=== PATIENT | female | born 1940 | race Caucasian/White ===

== ENCOUNTER 2022-02-19 19:41 | Emergency (ER) | payer MEDICARE, BC, SELFPAY ==
[2022-02-19] VITALS (7 sets, daily range): BP systolic 125–156; BP diastolic 100–107; PULSE 91–116; RESP 18; TEMP 37.1; O2SAT 93–97; BMI 34.6
--- NOTE | 2022-02-19 20:29 | CRLHL7_ITS ---
For Patients: As a result of the Cures Act, medical imaging exams and procedure reports are released immediately into your electronic medical record. You may view this report before your referring provider. If you have questions, please contact your health care provider. INDICATION: Shortness of breath. TECHNIQUE: Chest 1 views. COMPARISON: None. FINDINGS: Lungs: Clear lungs. No consolidation. Pleura: No pleural effusion or pneumothorax. Heart and Mediastinum: The cardiomediastinal silhouette is enlarged. The vessels are unremarkable. Bones: Unremarkable. IMPRESSION: No acute cardiopulmonary disease. Dictated by Stone Estrada MD @ 02/19/2022 9:21:22 PM (Electronically Signed)
[2022-02-19 20:45] LABS: Basophils Absolute Auto 0.04 K/uL (0.00-0.30); Basophils Percent Auto 0.4 % (0.0-3.0); Eosinophils Absolute Auto 0.35 K/uL (0.00-0.50); Eosinophils Percent Auto 3.7 % (0.0-7.0); Hematocrit 36.4 % (33.0-51.0); Hemoglobin* 11.7 gm/dL (12.0-16.0); Immature Granulocytes Abs Auto 0.01 K/uL (0.00-0.30); Immature Granulocytes Pct Auto 0.1 %; Lymphocytes Absolute Auto 2.35 K/uL (0.90-2.90); Lymphocytes Percent Auto 24.8 % (20-44); Mean Corpuscular HGB Conc 32 gm/dL (32-36); Mean Corpuscular Hemoglobin 28 pg (26-34); Mean Corpuscular Volume 88 fL (80-100); Monocytes Percent Auto 8.8 % (0.0-11.0); Neutrophils Percent Auto 62.2 % (42.0-72.0); Platelet Count* 284 K/uL (140-440); Red Blood Count 4.14 m/uL (4.00-5.20); White Blood Count* 9.48 K/uL (4.50-11.00)
[2022-02-19 20:46] LABS: Slide Review Reflex No
--- NOTE | 2022-02-19 20:47 | ED_ITS ---
HPI - Arrhythmia/Palpitations General Chief Complaint: Arrhythmia/Palpitations Stated Complaint: irregular heartbeat Time Seen by Provider: 02/19/22 20:09 History of Present Illness HPI narrative: Pt is an 81 year old woman who presents with a one hour history of palpitations. Pt has had no chest pain. She was at rest when she felt like her heart was going fast. She took her pulse and found that it was 125. Pt has no history of atrial fibrillation but did have an abnormal stress test in January the results are being managed with Imdur, Metoprolol, Lisinopril and aspirin. Pt has been active and having no symptoms. She does have chronic lower extremity edema which is unchanged. Upon arrival pt had an EKG showing atrial fibrillation with a rate of 138. She is placed on tele and her rate does fall to 80 at times. Related Data Home Medications Medication Instructions Recorded Confirmed alendronate 70 mg tablet 70 mg PO .Once Weekly 02/19/22 02/19/22 aspirin 81 mg tablet,delayed 81 mg PO DAILY 02/19/22 02/19/22 release (Adult Low Dose Aspirin) atorvastatin 40 mg tablet 40 mg PO .At Bedtime 02/19/22 02/19/22 furosemide 20 mg tablet 20 mg PO BID 02/19/22 02/19/22 ibuprofen 800 mg tablet 800 mg PO Q8H PRN pain 02/19/22 02/19/22 isosorbide mononitrate 30 mg 30 mg PO DAILY 02/19/22 02/19/22 tablet,extended release 24 hr lisinopril 10 mg tablet 10 mg PO DAILY 02/19/22 02/19/22 metoprolol succinate 25 mg 12.5 mg PO DAILY 02/19/22 02/19/22 tablet,extended release 24 hr potassium chloride 10 mEq 10 meq PO DAILY 02/19/22 02/19/22 tablet,extended release Previous Rx's Medication Instructions Recorded apixaban 5 mg tablet 5 mg PO BID Atrial Fibrillation 02/19/22 #60 tabs metoprolol succinate 25 mg 12.5 mg PO DAILY Atrial 02/19/22 tablet,extended release 24 hr Fibrillation #30 tabs (Toprol XL) Allergies Allergy/AdvReac Type Severity Reaction Status Date / Time bacitracin [From Cortisporin] AdvReac Verified 02/19/22 22:40 hydrocortisone AdvReac Verified 02/19/22 22:40 [From Cortisporin] neomycin [From Cortisporin] AdvReac Verified 02/19/22 22:40 polymyxin B AdvReac Verified 02/19/22 22:40 [From Cortisporin] Blue Dye Allergy Mild Itching Uncoded 02/19/22 22:40 Review of Systems Status of ROS: Reports: 10 or more systems reviewed and unremarkable except as noted in History and below [facility] Medical History (Updated 02/19/22 @ 23:50 by Jose A Alas MD) CAD (coronary artery disease) Hyperlipidemia Hypertension Social History Smoking Status: Former smoker What tobacco products do you use: cigarettes Do you use any of these nicotine containing products: None Second hand tobacco smoke exposure: Yes How often do you have a drink containing alcohol: monthly or less AUDIT-C Alcohol total score: 1 Non-prescribed substance use: denies use Exam Narrative: Exam Narrative: EXAM GENERAL: Patient appears comfortable and well. EYES: No scleral icterus. THYROID: no thyroid nodules or thyromegaly. LYMPH: No supraclavicular or cervical lymphadenopathy. SKIN: Visible skin seen during exam normal or with benign process only. EXT: No dependent lower extremity pedal edema. HEART: Irregularly irregular no rubs clicks gallops or murmurs. LUNGS: Clear to auscultation bilaterally with no crackles or wheezes. ABD: Soft, non tender, non distended. PSYCH: Good eye contact, speech is not pressured. Const: Vital Signs, click to edit/add: Vital Signs - 24 hr 02/19/22 19:56 02/19/22 20:45 02/19/22 21:34 Temperature 98.7 F Pulse Rate 104 H Pulse Rate [Left P ulse Oximeter] 109 H Respiratory Rate 18 Blood Pressure 139/107 H Blood Pressure [Ri ght Upper Arm] 156/106 H Pulse Oximetry 97 96 95 Oxygen Delivery Me thod Room Air 02/19/22 21:35 02/19/22 22:00 02/19/22 22:02 Temperature Pulse Rate 91 95 116 H Pulse Rate [Left P ulse Oximeter] Respiratory Rate Blood Pressure 125/100 H Blood Pressure [Ri ght Upper Arm] Pulse Oximetry 95 93 94 Oxygen Delivery Me thod 02/19/22 23:05 02/20/22 00:06 02/20/22 00:00 Temperature Pulse Rate 112 H 109 H Pulse Rate [Left P ulse Oximeter] Respiratory Rate Blood Pressure Blood Pressure [Ri ght Upper Arm] 142/97 H Pulse Oximetry 97 96 Oxygen Delivery Me thod 02/20/22 00:02 Temperature Pulse Rate Pulse Rate [Left P ulse Oximeter] Respiratory Rate Blood Pressure 142/94 H Blood Pressure [Ri ght Upper Arm] Pulse Oximetry Oxygen Delivery Me thod Course Course Hospital Course: Pt seen and examined, Labs and x ray orded. Pt placed on tele. Reevaluation(s) Reevaluation #1: Pt feeling better. Rate is now 92 down from 138 without intervention. Time: 20:58 Consultations Consultation #1: Case discussed with Cardiology. Recommend no cardioversion as length of atrial fibrillation. Rate control and anticoagulation with Apixaban. Time: 20:58 Consultation #2: D dimer elevated but CT of chest shows no evidence of PE. Time: 23:46 Vital Signs Vital signs: Initial Vital Signs Temperature 98.7 F 02/19/22 19:56 Temperature Source Temporal Artery Scan 02/19/22 19:56 Pulse Rate 109 H 02/19/22 19:56 Pulse Rhythm 02/19/22 19:56 Respiratory Rate 18 02/19/22 19:56 Blood Pressure 156/106 H 02/19/22 19:56 Blood Pressure Mean 122 02/19/22 19:56 Blood Pressure Position Sitting 02/19/22 19:56 Pulse Oximetry 97 02/19/22 19:56 Oxygen Delivery Method 02/19/22 19:56 Vital Signs Temperature 98.7 F 02/19/22 19:56 Pulse Rate 109 H 02/19/22 19:56 Respiratory Rate 18 02/19/22 19:56 Blood Pressure 156/106 H 02/19/22 19:56 Pulse Oximetry 97 02/19/22 19:56 Oxygen Delivery Method 02/19/22 19:56 Temperature 98.7 F 02/19/22 19:56 Pulse Rate 109 H 02/20/22 00:00 Respiratory Rate 18 02/19/22 19:56 Blood Pressure 142/97 H 02/20/22 00:06 Pulse Oximetry 96 02/20/22 00:00 Oxygen Delivery Method 02/19/22 19:56 MDM - Arrhythmia/Palpitations MDM Narrative Medical decision making narrative: Pt is an 81 year old woman who comes in with palpitations. Found to be in atrial fibrillation with rate of 138. This falls to 90 without intervention. Discussed case with Cardiology who recommends no cardioversion but rate control and anticoagulation with Apixaban. Troponin negative times two. D dimer elevated. CT of chest negative for PE. Pt started on Apixaban and Topol XL increased from 12.5 to 25 daily. Cardiology follow up. Differential Diagnosis Differential diagnosis: Likely sinus tachycardia, artial fibrillation, artial flutter, ventricular premature beats, supraventricular tachycardia and ventricular tachycardia Lab Data Labs: Lab Results 02/19/22 02/19/22 02/19/22 Range/Units 20:34 20:34 20:34 WBC 9.48 (4.50-11.00) K/uL RBC 4.14 (4.00-5.20) m/uL Hgb 11.7 L (12.0-16.0) gm/dL Hct 36.4 (33.0-51.0) % MCV 88 (80-100) fL MCH 28 (26-34) pg MCHC 32 (32-36) gm/dL RDW Coeff of Sofia 14.0 (11.5-15.5) % Plt Count 284 (140-440) K/uL Neut % (Auto) 62.2 (42.0-72.0) % Lymph % (Auto) 24.8 (20-44) % [place] % (Auto) 8.8 (0.0-11.0) % Eos % (Auto) 3.7 (0.0-7.0) % Baso % (Auto) 0.4 (0.0-3.0) % Neut # (Auto) 5.90 (1.7-7.0) K/uL Lymph # (Auto) 2.35 (0.90-2.90) K/uL [place] # (Auto) 0.80 (0.00-0.90) K/UL Eos # (Auto) 0.35 (0.00-0.50) K/uL Baso # (Auto) 0.04 (0.00-0.30) K/uL D-Dimer Quant (PE/DVT) 2.12 H (0.00-0.50) ug/ml Sodium 140 (135-149) mmol/L Potassium 3.0 L (3.6-5.1) mmol/L Chloride 106 (96-114) mmol/L Carbon Dioxide 29 (20-32) mmol/L BUN 15 (7-30) mg/dL Creatinine 0.7 (0.5-1.5) mg/dL Estimated Creat Clear 45.33 Estimated GFR 86 ml/min Glucose 112 (60-115) mg/dL Calcium 8.6 (8.4-10.6) mg/dL Troponin I < 0.01 L (0.01-0.04) ng/mL POC Troponin I (0.01-0.04) ng/ml 02/19/22 Range/Units 22:05 WBC (4.50-11.00) K/uL RBC (4.00-5.20) m/uL Hgb (12.0-16.0) gm/dL Hct (33.0-51.0) % MCV (80-100) fL MCH (26-34) pg MCHC (32-36) gm/dL RDW Coeff of Sofia (11.5-15.5) % Plt Count (140-440) K/uL Neut % (Auto) (42.0-72.0) % Lymph % (Auto) (20-44) % [place] % (Auto) (0.0-11.0) % Eos % (Auto) (0.0-7.0) % Baso % (Auto) (0.0-3.0) % Neut # (Auto) (1.7-7.0) K/uL Lymph # (Auto) (0.90-2.90) K/uL [place] # (Auto) (0.00-0.90) K/UL Eos # (Auto) (0.00-0.50) K/uL Baso # (Auto) (0.00-0.30) K/uL D-Dimer Quant (PE/DVT) (0.00-0.50) ug/ml Sodium (135-149) mmol/L Potassium (3.6-5.1) mmol/L Chloride (96-114) mmol/L Carbon Dioxide (20-32) mmol/L BUN (7-30) mg/dL Creatinine (0.5-1.5) mg/dL Estimated Creat Clear Estimated GFR ml/min Glucose (60-115) mg/dL Calcium (8.4-10.6) mg/dL Troponin I (0.01-0.04) ng/mL POC Troponin I 0.01 (0.01-0.04) ng/ml Discharge Plan Discharge Clinical Impression: Atrial fibrillation Patient Disposition: Home, Self-Care Condition: Stable Instructions: A-fib (Atrial Fibrillation) (ED) Additional Instructions: Apixaban 5 mg twice daily Increase Toprol XL to 25 mg daily Follow up with Cardiology Activity Level: Activity as Tolerated Discharge Diet: Regular Prescriptions: New apixaban 5 mg tablet 5 mg PO BID Qty: 60 2RF metoprolol succinate [Toprol XL] 25 mg tablet extended release 24 hr 12.5 mg PO DAILY Qty: 30 2RF No Action atorvastatin 40 mg tablet 40 mg PO .At Bedtime ibuprofen 800 mg tablet 800 mg PO Q8H PRN (Reason: pain) Label Comments: TAKE 1 TABLET BY MOUTH EVERY 8 TO 12 HOURS NEEDED FOR PAIN isosorbide mononitrate 30 mg tablet extended release 24 hr 30 mg PO DAILY alendronate 70 mg tablet 70 mg PO .Once Weekly potassium chloride 10 mEq tablet extended release 10 meq PO DAILY lisinopril 10 mg tablet 10 mg PO DAILY furosemide 20 mg tablet 20 mg PO BID metoprolol succinate 25 mg tablet extended release 24 hr 12.5 mg PO DAILY aspirin [Adult Low Dose Aspirin] 81 mg tablet,delayed release (DR/EC) 81 mg PO DAILY Follow Up/Referrals: Bre Durham MD [Primary Care Provider] - Stand Alone Forms: MyHealth Info Instructions
[2022-02-19 21:17] LABS: Chloride* 106 mmol/L (96-114); Sodium* 140 mmol/L (135-149)
[2022-02-19 21:20] LABS: Blood Urea Nitrogen* 15 mg/dL (7-30); Carbon Dioxide* 29 mmol/L (20-32); Creatinine* 0.7 mg/dL (0.5-1.5); Est. Creatinine Clearance* 45.33; Estimated Glomerular Filt Rate 86 ml/min; Glucose* 112 mg/dL (60-115)
[2022-02-19 21:21] LABS: Calcium* 8.6 mg/dL (8.4-10.6)
[2022-02-19 21:22] LABS: D Dimer Quantitative* 2.12 ug/ml (0.00-0.50)
[2022-02-19 21:35] LABS: Troponin I* < 0.01 ng/mL (0.01-0.04)
--- NOTE | 2022-02-19 21:50 | CRLHL7_ITS ---
For Patients: As a result of the Century Cures Act, medical imaging exams and procedure reports are released immediately into your electronic medical record. You may view this report before your referring provider. If you have questions, please contact your health care provider. INDICATION: Elevated D-dimer. TECHNIQUE: CT chest PE was acquired with 95 cc Isovue 370 IV contrast. COMPARISON: Chest CT 07/30/2019. FINDINGS: Heart and vasculature: Contrast opacification of the pulmonary arterial tree is adequate. No sign of pulmonary embolism. Cardiomegaly with biatrial enlargement. Enlarged main pulmonary artery measuring 3.7 cm. Normal caliber thoracic aorta with mild atherosclerotic calcification. Lungs and pleura: The lungs are clear. No pleural effusion or pneumothorax. No suspicious nodule. Lymph nodes/mediastinum: No mediastinal, hilar, or axillary adenopathy. 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 Thyroid: Unremarkable. Upper abdomen: No acute or significant findings. Bones: Unremarkable for age. IMPRESSION: No pulmonary embolism. No acute findings in the chest. Please note that all CT scans at this facility use dose modulation, iterative reconstruction, and/or weight-based dosing when appropriate to reduce radiation dose to as low as reasonably achievable. Dictated by Valente Garcia MD @ 02/19/2022 11:29:14 PM (Electronically Signed)
[2022-02-19 22:29] LABS: Troponin, Point-of-Care* 0.01 ng/ml (0.01-0.04)
[2022-02-20] VITALS: PULSE 109; O2SAT 96
[2022-02-20 00:02] VITALS: BP 142/94
[2022-02-20 00:06] VITALS: BP 142/97
== END 2022-02-20 00:08 | disposition home or self-care (01) ==
PROVIDERS: Emergency Provider Internal Medicine; PCP Family Medicine
DX: I48.91 Unspecified atrial fibrillation (principal)
CPT/HCPCS: 36415; 71045; 71260; 80048; 84484; 85025; 85379; 93005; 94761; 99283; 99284; Q9967

== ENCOUNTER 2024-02-18 09:45 | Outpatient (RCR) | payer MEDICARE, BC, SELFPAY | END 2024-06-17 23:59 | disposition home or self-care (01) | PROVIDERS: PCP Family Medicine; Visit Provider Family Medicine | DX: R26.89 Other abnormalities of gait and mobility (principal); Z51.89 Encounter for other specified aftercare | CPT/HCPCS: 97110; 97161 ==

== ENCOUNTER 2024-05-21 12:32 | Outpatient (CLI) | payer MEDICARE, BC, SELFPAY | END 2024-05-21 12:33 | disposition home or self-care (01) | LOC: WOUND 12:44 | PROVIDERS: PCP Family Medicine; Visit Provider Nurse Practitioner Family | DX: I87.311 Chronic venous hypertension (idiopathic) with ulcer of right lower extremity (principal); L97.818 Non-pressure chronic ulcer of other part of right lower leg with other specified severity; I48.19 Other persistent atrial fibrillation; E66.812 Obesity, class 2; Z68.28 Body mass index [BMI] 28.0-28.9, adult | CPT/HCPCS: 11043; G0463 ==

== ENCOUNTER 2024-06-04 14:33 | Outpatient (CLI) | payer MEDICARE, BC, SELFPAY | END 2024-06-04 14:34 | disposition home or self-care (01) | LOC: WOUND 14:34 | PROVIDERS: PCP Family Medicine; Visit Provider Nurse Practitioner Family | DX: I87.311 Chronic venous hypertension (idiopathic) with ulcer of right lower extremity (principal); L97.818 Non-pressure chronic ulcer of other part of right lower leg with other specified severity | CPT/HCPCS: 11042 ==

== ENCOUNTER 2024-06-24 14:02 | Outpatient (CLI) | payer MEDICARE, BC, SELFPAY | END 2024-06-24 14:03 | disposition home or self-care (01) | LOC: WOUND 14:03 | PROVIDERS: PCP Family Medicine; Visit Provider Nurse Practitioner Family | DX: I87.311 Chronic venous hypertension (idiopathic) with ulcer of right lower extremity (principal); L97.818 Non-pressure chronic ulcer of other part of right lower leg with other specified severity; I48.19 Other persistent atrial fibrillation | CPT/HCPCS: 11042 ==

== ENCOUNTER 2024-07-09 09:18 | Outpatient (CLI) | payer MEDICARE, BC, SELFPAY | END 2024-07-09 09:19 | disposition home or self-care (01) | LOC: WOUND 09:18 | PROVIDERS: PCP Family Medicine; Visit Provider Nurse Practitioner Family | DX: I87.311 Chronic venous hypertension (idiopathic) with ulcer of right lower extremity (principal); L97.812 Non-pressure chronic ulcer of other part of right lower leg with fat layer exposed | CPT/HCPCS: 11042 ==

== ENCOUNTER 2024-07-23 14:05 | Outpatient (CLI) | payer MEDICARE, BC, SELFPAY | END 2024-07-23 14:06 | disposition home or self-care (01) | LOC: WOUND 14:05 | PROVIDERS: PCP Family Medicine; Visit Provider Family Medicine | DX: I87.311 Chronic venous hypertension (idiopathic) with ulcer of right lower extremity (principal); L97.812 Non-pressure chronic ulcer of other part of right lower leg with fat layer exposed | CPT/HCPCS: 11042 ==